=== PATIENT | male | born 1945 | race Caucasian/White ===

== ENCOUNTER 2017-02-08 08:18 | Day surgery (SDC) | payer OTHER ==
[2017-02-08] MEDS ORDERED: TETRACAINE 0.5% OPHTH 1 DOSE AFFEYE ONE ×2 (09:00→12:56)
[2017-02-08] MEDS ORDERED: VIGAMOX 0.5% OPHTH 1 DOSE AFFEYE ONE ×5 (09:01→13:35)
[2017-02-08] MEDS ORDERED: NS 500 ML IV 500 ML IV ONE (09:11)
[2017-02-08] MEDS ORDERED: PROLENSA OPHTH 1 DOSE AFFEYE ONE (09:12)
[2017-02-08] MEDS ORDERED: ALPHAGAN-P OPHTH 1 DOSE AFFEYE ONE (09:13)
[2017-02-08] MEDS ORDERED: VISINE-A OPHTH 1 DOSE AFFEYE ONE (09:14)
[2017-02-08] MEDS ORDERED: AK-DILATE 2.5% OPHTH 1 DOSE OP ONE ×5 (09:15→09:19)
[2017-02-08] MEDS ORDERED: MYDRIACIL OPHTH 1 DOSE AFFEYE ONE ×5 (09:15→09:19)
[2017-02-08] MEDS ORDERED: CYCLOGYL 1% OPHTH 1 DOSE OP ONE ×5 (09:15→09:19)
[2017-02-08] MEDS ORDERED: BETADINE OPHTH SOLN 5% EACHEYE ONE (12:55)
[2017-02-08] MEDS ORDERED: DUOVISC IO ONE ×2 (13:00→13:24)
[2017-02-08] MEDS ORDERED: ADRENALINE CHL INJ IJ ONE ×2 (13:00→13:24)
[2017-02-08] MEDS ORDERED: BSS OPHTH (PLAIN) 500 ML with VANCOMYCIN HCL 500 MG VIAL 25 MG, ADRENALINE CHL INJ 1 MG IR ONE ×6 (13:00)
[2017-02-08] MEDS ORDERED: XYLOCAINE-MPF 1% IJ ONE ×2 (13:00→13:24)
[2017-02-08] MEDS ORDERED: DIPRIVAN VIAL ONE (13:38)
[2017-02-08 17:48] VITALS: BP 140/64
== END 2017-02-08 14:05 | disposition home or self-care (01) ==
LOC: SURG1 08:18
PROVIDERS: ATTEND Ophthalmology
PROC: 08RK3JZ Replacement of Left Lens with Synthetic Substitute, Percutaneous Approach (ICD-10-PCS; principal; 2017-02-08 07:30)
PROC: 08DK3ZZ Extraction of Left Lens, Percutaneous Approach (ICD-10-PCS; principal; 2017-02-08 07:30)
DX: H25.12 Age-related nuclear cataract, left eye (principal); H25.012 Cortical age-related cataract, left eye
CPT/HCPCS: 99100; A4217; J0170; J3370; J3490

== ENCOUNTER 2017-03-01 06:48 | Day surgery (SDC) | payer OTHER ==
[2017-03-01] MEDS ORDERED: NS 500 ML IV 500 ML IV ONE (07:20)
[2017-03-01] MEDS ORDERED: TETRACAINE 0.5% OPHTH 1 DOSE AFFEYE ONE ×3 (07:30→09:21)
[2017-03-01] MEDS ORDERED: VIGAMOX 0.5% OPHTH 1 DOSE AFFEYE ONE ×4 (07:31→09:47)
[2017-03-01] MEDS ORDERED: PROLENSA OPHTH 1 DOSE AFFEYE ONE (07:42)
[2017-03-01] MEDS ORDERED: ALPHAGAN-P OPHTH 1 DOSE AFFEYE ONE (07:43)
[2017-03-01] MEDS ORDERED: CYCLOGYL 1% OPHTH 1 DOSE OP ONE ×4 (07:44→07:47)
[2017-03-01] MEDS ORDERED: AK-DILATE 2.5% OPHTH 1 DOSE OP ONE ×4 (07:44→07:47)
[2017-03-01] MEDS ORDERED: MYDRIACIL OPHTH 1 DOSE AFFEYE ONE ×4 (07:44→07:47)
[2017-03-01] MEDS ORDERED: BETADINE OPHTH SOLN 5% EACHEYE ONE (09:21)
[2017-03-01] MEDS ORDERED: DUOVISC IO ONE (09:35)
[2017-03-01] MEDS ORDERED: XYLOCAINE-MPF 1% IJ ONE (09:35)
[2017-03-01] MEDS ORDERED: ADRENALINE CHL INJ IJ ONE (09:35)
[2017-03-01] MEDS ORDERED: BSS OPHTH (PLAIN) 500 ML with VANCOMYCIN HCL 500 MG VIAL 25 MG, ADRENALINE CHL INJ 1 MG IR ONE ×3 (09:35)
[2017-03-01 10:10] VITALS: BP 116/57
== END 2017-03-01 10:10 | disposition home or self-care (01) ==
LOC: SURG1 06:48
PROVIDERS: ATTEND Ophthalmology
PROC: 08DJ3ZZ Extraction of Right Lens, Percutaneous Approach (ICD-10-PCS; principal; 2017-03-01 07:30)
PROC: 08RJ3JZ Replacement of Right Lens with Synthetic Substitute, Percutaneous Approach (ICD-10-PCS; principal; 2017-03-01 07:30)
DX: H25.11 Age-related nuclear cataract, right eye (principal); H25.011 Cortical age-related cataract, right eye
CPT/HCPCS: 99100; A4217; J0170; J3370